=== PATIENT | female | born 1955 | race Caucasian/White ===

== ENCOUNTER 2018-11-05 16:55 | Inpatient (IN) | payer SELFPAY ==
[~2018-11-05] VITALS: Ht 172.7 cm; Wt 103.0 kg
[~2018-11-05 16:55] MED LIST: ATEN-41 PO; BUPR75TA20 PO; FLUO40CA8 PO; GABA-529 PO; PRO40 PO
[2018-11-05 17:05] VITALS: BP_SYST 144
[2018-11-05] MEDS ORDERED: NACL 0.9% 1,000 ML IV ONE (17:17)
[2018-11-05] MEDS ORDERED: ONDANSETRON HCL 4 MG/2 ML VIAL IVP ONE (17:30)
[2018-11-05] MEDS ORDERED: MORPHINE 4 MG/ML INJ. SYRINGE IM ONE (17:30)
[2018-11-05] MEDS ORDERED: IPRATROPIUM/ALBUTEROL SULFATE 3 ML AMPUL.NEB (DUONEB) INH ONE (17:30)
[2018-11-05 17:54] LABS: HEMATOCRIT 27.9 % (36-48); HEMOGLOBIN 8.4 g/dL (12.0-16.0); MEAN CORPUSCULAR VOLUME 74 fL (79.0-98.0); RED BLOOD CELL COUNT(AUTO) 3.75 MIL/uL (4.2-6.2); WHITE BLOOD COUNT (AUTO) 13.3 K/uL (4.8-10.8)
[2018-11-05 17:55] LABS: BASOPHILS % (AUTO) 0.2 % (0.0-2.0); EOSINOPHILS # (AUTO) 0.3 K/uL (0.0-0.4); EOSINOPHILS % (AUTO) 2.5 % (0.0-4.0); LYMPHOCYTES # (AUTO) 2.3 K/uL (1.0-5.5); LYMPHOCYTES % (AUTO) 17.6 % (20.5-51.5); MEAN CORPUSCULAR HEMOGLOBIN 22 pg (27-31); MEAN CORPUSCULAR HGB CONC 30 % (32-36); MONOCYTES # (AUTO) 1.4 K/uL (0.0-1.0); MONOCYTES % (AUTO) 10.7 % (1.7-9.3); NEUTROPHILS # (AUTO) 9.2 K/uL (1.8-7.7); PLATELET COUNT (AUTO) 483 K/uL (130-430); RED CELL DISTRIBUTION WIDTH 23.9 % (9.0-15.0)
[2018-11-05 18:00] LABS: CALCIUM 9.8 mg/dL (8.4-11.0); CREATININE 1.21 mg/dL (0.55-1.30); POTASSIUM 3.2 mmol/L (3.5-5.1)
[2018-11-05 18:02] LABS: INR 0.9 (0.8-1.2)
[2018-11-05 18:05] LABS: TOTAL BILIRUBIN 0.6 mg/dL (0.0-1.0)
[2018-11-05] MEDS ORDERED: LORazepam 2 MG/ML VIAL IVP PRN (19:00)
[2018-11-05] MEDS ORDERED: IOHEXOL 100 ML IV ONE (19:14)
[2018-11-05 19:45] VITALS: BP_SYST 145
[2018-11-05] MEDS ORDERED: POTASSIUM CHLORIDE 20 MEQ TAB.PRT.SR PO SCH (21:00)
[2018-11-05] MEDS: ONDANSETRON HCL 4 MG/2 ML VIAL IVP PRN (21:17)
[2018-11-05] MEDS ORDERED: MVI 10 ML VIAL IV ONE (21:19)
[2018-11-05] MEDS: MORPHINE 4 MG/ML INJ. SYRINGE IVP PRN (21:19)
[2018-11-05] MEDS ORDERED: THIAMINE HCL 100 MG/ML VIAL ONE (21:20)
[2018-11-05] MEDS ORDERED: MAGNESIUM SULFATE 1 GM/2 ML VIAL ONE (21:20)
[2018-11-05] MEDS ORDERED: FOLIC ACID 1 MG, THIAMINE HCL 100 MG, MAGNESIUM SULFATE 1 GM, MVI 10 ML in NACL 0.9% 1,... IV SCH (21:30)
[2018-11-05] MEDS ORDERED: FOLIC ACID 5 MG/ML VIAL IV ONE (21:32)
[2018-11-05] MEDS: TEMAZEPAM 15 MG CAPSULE PO PRN (22:42)
[2018-11-05] MEDS: FAMOTIDINE PF 20 MG/2 ML VIAL IVP SCH (22:42)
[2018-11-05] MEDS ORDERED: FAMOTIDINE PF 20 MG/2 ML VIAL ONE (22:51)
[2018-11-05] MEDS: HYDROcodone/ACETAMIN 10-325 MG TAB PO PRN (23:26)
[2018-11-06 00:25] VITALS: BP_SYST 149
[2018-11-06 02:54] LABS: BILIRUBIN,URINE NEGATIVE (NEGATIVE); BLOOD, URINE NEGATIVE (NEGATIVE); CLARITY/URINE CLEAR (CLEAR); COLOR,URINE YELLOW (YELLOW); GLUCOSE,URINE NEGATIVE (NEGATIVE); KETONES,URINE NEGATIVE (NEGATIVE); LEUKOCYTE ESTERASE ,URINE TRACE (NEGATIVE); NITRITE, URINE NEGATIVE (NEGATIVE); PROTEIN URINE TRACE (NEGATIVE); UROBILINOGEN,URINE 0.2 (0.2-1.0)
[2018-11-06 02:58] LABS: BACTERIA,URINE FEW /HPF (None Seen); RBC,URINE 0-3 /HPF (0-3)
[2018-11-06 06:17] LABS: INR 0.9 (0.8-1.2); PROTHROMBIN TIME 9.3 SECS (9.5-12.5)
[2018-11-06] MEDS: MORPHINE 4 MG/ML INJ. SYRINGE IVP PRN ×4 (06:59→21:46)
[2018-11-06] MEDS: ONDANSETRON HCL 4 MG/2 ML VIAL IVP PRN ×3 (07:03→21:44)
[2018-11-06 07:31] VITALS: BP_SYST 155
[2018-11-06 07:39] LABS: HEMOGLOBIN 7.7 g/dL (12.0-16.0); RED BLOOD CELL COUNT(AUTO) 3.48 MIL/uL (4.2-6.2); WHITE BLOOD COUNT (AUTO) 14.4 K/uL (4.8-10.8)
[2018-11-06 07:40] LABS: HEMATOCRIT 26.2 % (36-48)
[2018-11-06 07:41] LABS: BASOPHILS % (AUTO) 0.5 % (0.0-2.0); EOSINOPHILS % (AUTO) 1.9 % (0.0-4.0); LYMPHOCYTES # (AUTO) 2.5 K/uL (1.0-5.5); LYMPHOCYTES % (AUTO) 17.6 % (20.5-51.5); MEAN CORPUSCULAR HEMOGLOBIN 22 pg (27-31); MEAN CORPUSCULAR HGB CONC 29 % (32-36); MEAN CORPUSCULAR VOLUME 75 fL (79.0-98.0); MONOCYTES % (AUTO) 7.5 % (1.7-9.3); NEUTROPHILS # (AUTO) 10.5 K/uL (1.8-7.7); NEUTROPHILS % (AUTO) 72.5 % (40.0-70.0); PLATELET COUNT (AUTO) 423 K/uL (130-430); RED CELL DISTRIBUTION WIDTH 24.1 % (9.0-15.0)
[2018-11-06 07:43] LABS: BASOPHILS # (AUTO) 0.1 K/uL (0.0-0.2); EOSINOPHILS # (AUTO) 0.3 K/uL (0.0-0.4); MONOCYTES # (AUTO) 1.1 K/uL (0.0-1.0); RETICULOCYTE COUNT 2.5 % (0.5-1.5)
[2018-11-06 08:35] LABS: CALCIUM 8.9 mg/dL (8.4-11.0); CREATININE 0.97 mg/dL (0.55-1.30); POTASSIUM 3.2 mmol/L (3.5-5.1)
[2018-11-06 08:38] LABS: ALBUMIN 2.5 g/dL (3.4-4.8); FREE T4 (FREE THYROXINE) 0.6 ng/dl (0.8-1.5); THYROID STIMULATING HORMONE 4.78 uIu/mL (0.36-3.74); TOTAL BILIRUBIN 0.3 mg/dL (0.0-1.0)
[2018-11-06] MEDS: FLUoxetine HCL 20 MG CAPSULE (PROzac) PO SCH (09:00)
[2018-11-06] MEDS: GABAPENTIN 100 MG CAPSULE PO SCH ×3 (09:00→21:45)
[2018-11-06] MEDS: buPROPion HCL 75 MG TABLET PO SCH ×2 (09:00→15:02)
[2018-11-06] MEDS: PANTOPRAZOLE SODIUM 40 MG TAB PO SCH ×2 (09:00→21:45)
[2018-11-06] MEDS: ATENOLOL 50 MG TABLET (TENORMIN) PO SCH (09:00)
[2018-11-06 09:08] LABS: TOTAL IRON BIND. CAPACITY 351 ug/dL (250-450)
[2018-11-06] MEDS: FAMOTIDINE PF 20 MG/2 ML VIAL IVP SCH ×2 (09:08→21:46)
[2018-11-06] MEDS: HYDROcodone/ACETAMIN 10-325 MG TAB PO PRN ×3 (09:54→23:32)
[2018-11-06] MEDS ORDERED: POTASSIUM CHLORIDE 40 MEQ, LIDOCAINE JECT 2% PF 100 MG 50 MG in NS 250 ML IV ONE (10:15)
[2018-11-06] MEDS: D5LR 1,000 ML IV SCH ×3 (10:48→23:35)
[2018-11-06 11:17] VITALS: BP_SYST 147
[2018-11-06 13:13] VITALS: BP_SYST 147
[2018-11-06] MEDS ORDERED: IRON SUCROSE COMPLEX 200 MG in NS 100 ML IV ONE (14:15)
[2018-11-06] MEDS: cefTRIAXone 1 GM in D5W 50 ML IV SCH (16:01)
[2018-11-06 18:08] VITALS: BP_SYST 140
[2018-11-06 20:15] VITALS: BP_SYST 137
[2018-11-06] MEDS: FOLIC ACID 1 MG, THIAMINE HCL 100 MG, MAGNESIUM SULFATE 1 GM, MVI 10 ML in NACL 0.9% 1,... IV SCH (21:44)
[2018-11-07 00:45] LABS: BARBITURATE, URINE NEGATIVE (NEG <=200); METHAMPHETAMINES SCREEN,URINE NEGATIVE (NEG <=500); OPIATE, URINE POSITIVE (NEG <=100); URINE AMPHETAMINE NEGATIVE (NEG <=500); URINE METHADONE NEGATIVE (NEG <=200)
[2018-11-07 00:46] LABS: BENZODIAZEPINE, URINE POSITIVE (NEG <=150); CANNABINOID, URINE NEGATIVE (NEG <=50); COCAINE, URINE NEGATIVE (NEG <=150); PHENCYCLIDINE SCREEN,URINE NEGATIVE (NEG <=25); UR TRICYCLIC ANTIDEPRESSANTS NEGATIVE (NEG <=300); URINE OXYCODONE SCREEN NEGATIVE (NEG <=100); URINE PROPOXYPHENE SCREEN NEGATIVE (NEG <=300)
[2018-11-07 00:54] VITALS: BP_SYST 156
[2018-11-07] MEDS: MORPHINE 4 MG/ML INJ. SYRINGE IVP PRN ×4 (04:57→21:10)
[2018-11-07] MEDS: ONDANSETRON HCL 4 MG/2 ML VIAL IVP PRN ×3 (04:57→21:09)
[2018-11-07] MEDS: D5LR 1,000 ML IV SCH ×2 (04:58→15:14)
[2018-11-07 06:16] LABS: INR 0.9 (0.8-1.2); PROTHROMBIN TIME 9.3 SECS (9.5-12.5)
[2018-11-07 06:31] LABS: CREATININE 0.91 mg/dL (0.55-1.30)
[2018-11-07 06:41] LABS: ALBUMIN 2.4 g/dL (3.4-4.8)
[2018-11-07 06:54] LABS: TOTAL BILIRUBIN 0.1 mg/dL (0.0-1.0)
[2018-11-07] MEDS ORDERED: MIDAZOLAM HCL 5 MG/5 ML VIAL ONE (07:16)
[2018-11-07 07:34] LABS: HEMATOCRIT 24.3 % (36-48); HEMOGLOBIN 7.3 g/dL (12.0-16.0); LYMPHOCYTES % (AUTO) 24.4 % (20.5-51.5); MEAN CORPUSCULAR HEMOGLOBIN 23 pg (27-31); MEAN CORPUSCULAR HGB CONC 30 % (32-36); MEAN CORPUSCULAR VOLUME 76 fL (79.0-98.0); MONOCYTES % (AUTO) 8.7 % (1.7-9.3); NEUTROPHILS % (AUTO) 58.5 % (40.0-70.0); PLATELET COUNT (AUTO) 400 K/uL (130-430); RED BLOOD CELL COUNT(AUTO) 3.22 MIL/uL (4.2-6.2); RED CELL DISTRIBUTION WIDTH 23.4 % (9.0-15.0); WHITE BLOOD COUNT (AUTO) 9.5 K/uL (4.8-10.8)
[2018-11-07 07:35] LABS: BASOPHILS # (AUTO) 0.1 K/uL (0.0-0.2); BASOPHILS % (AUTO) 0.6 % (0.0-2.0); EOSINOPHILS # (AUTO) 0.7 K/uL (0.0-0.4); EOSINOPHILS % (AUTO) 7.8 % (0.0-4.0); LYMPHOCYTES # (AUTO) 2.3 K/uL (1.0-5.5); MONOCYTES # (AUTO) 0.8 K/uL (0.0-1.0); NEUTROPHILS # (AUTO) 5.6 K/uL (1.8-7.7)
[2018-11-07] MEDS: GABAPENTIN 100 MG CAPSULE PO SCH ×3 (09:00→21:10)
[2018-11-07] MEDS: MEPERIDINE HCL/PF 100 MG/ML AMP ONE ×3 (09:42→09:50)
[2018-11-07] MEDS: MIDAZOLAM HCL 5 MG/5 ML VIAL ONE ×5 (09:42→09:50)
[2018-11-07] MEDS: FAMOTIDINE PF 20 MG/2 ML VIAL IVP SCH ×2 (11:49→21:09)
[2018-11-07 12:59] VITALS: BP_SYST 140
[2018-11-07] MEDS: HYDROcodone/ACETAMIN 10-325 MG TAB PO PRN (13:42)
[2018-11-07] MEDS: cefTRIAXone 1 GM in D5W 50 ML IV SCH (15:18)
[2018-11-07] MEDS: FLUoxetine HCL 20 MG CAPSULE (PROzac) PO SCH (15:21)
[2018-11-07] MEDS: buPROPion HCL 75 MG TABLET PO SCH (15:22)
[2018-11-07] MEDS: ATENOLOL 50 MG TABLET (TENORMIN) PO SCH (15:23)
[2018-11-07 16:41] VITALS: BP_SYST 159
[2018-11-07] MEDS: PANTOPRAZOLE SODIUM 40 MG/VIAL (PROTONIX) IVP SCH ×2 (17:00→17:16)
[2018-11-07] MEDS ORDERED: IRON SUCROSE COMPLEX 200 MG in NS 100 ML IV SCH (18:00)
[2018-11-07 20:33] VITALS: BP_SYST 148
[2018-11-07] MEDS: SUCRALFATE 1 GM TABLET PO SCH (21:08)
[2018-11-07] MEDS: FOLIC ACID 1 MG, THIAMINE HCL 100 MG, MAGNESIUM SULFATE 1 GM, MVI 10 ML in NACL 0.9% 1,... IV SCH (21:08)
[2018-11-07] MEDS: MULTIVITS,CA,MINERALS/IRON/FA 1 TABLET PO SCH (21:08)
[2018-11-08] MEDS: D5LR 1,000 ML IV SCH (00:21)
[2018-11-08] MEDS: TEMAZEPAM 15 MG CAPSULE PO PRN (00:21)
[2018-11-08 03:19] VITALS: BP_SYST 131
[2018-11-08] MEDS: SUCRALFATE 1 GM TABLET PO SCH ×5 (06:20→22:24)
[2018-11-08] MEDS: PANTOPRAZOLE SODIUM 40 MG/VIAL (PROTONIX) IVP SCH ×2 (06:20→16:18)
[2018-11-08 07:20] VITALS: BP_SYST 137
[2018-11-08 07:35] LABS: CALCIUM 9.4 mg/dL (8.4-11.0); CREATININE 0.79 mg/dL (0.55-1.30); POTASSIUM 4.1 mmol/L (3.5-5.1)
[2018-11-08] MEDS: ONDANSETRON HCL 4 MG/2 ML VIAL IVP PRN (07:51)
[2018-11-08] MEDS: MORPHINE 4 MG/ML INJ. SYRINGE IVP PRN ×4 (07:51→22:33)
[2018-11-08] MEDS: MULTIVITS,CA,MINERALS/IRON/FA 1 TABLET PO SCH ×2 (08:49→22:25)
[2018-11-08] MEDS: FLUoxetine HCL 20 MG CAPSULE (PROzac) PO SCH (08:49)
[2018-11-08] MEDS: GABAPENTIN 100 MG CAPSULE PO SCH ×3 (08:50→22:25)
[2018-11-08] MEDS: FAMOTIDINE PF 20 MG/2 ML VIAL IVP SCH (08:51)
[2018-11-08] MEDS: ATENOLOL 50 MG TABLET (TENORMIN) PO SCH (08:51)
[2018-11-08] MEDS: buPROPion HCL 75 MG TABLET PO SCH (08:59)
[2018-11-08 09:36] LABS: LYMPHOCYTES % (AUTO) 25.6 % (20.5-51.5); MEAN CORPUSCULAR HEMOGLOBIN 23 pg (27-31); MEAN CORPUSCULAR HGB CONC 30 % (32-36); MEAN CORPUSCULAR VOLUME 76 fL (79.0-98.0); NEUTROPHILS % (AUTO) 56.8 % (40.0-70.0); PLATELET COUNT (AUTO) 416 K/uL (130-430); WHITE BLOOD COUNT (AUTO) 10.7 K/uL (4.8-10.8)
[2018-11-08 09:37] LABS: BASOPHILS % (AUTO) 0.5 % (0.0-2.0); EOSINOPHILS # (AUTO) 0.9 K/uL (0.0-0.4); EOSINOPHILS % (AUTO) 8.3 % (0.0-4.0); LYMPHOCYTES # (AUTO) 2.7 K/uL (1.0-5.5); MONOCYTES # (AUTO) 0.9 K/uL (0.0-1.0); MONOCYTES % (AUTO) 8.8 % (1.7-9.3); NEUTROPHILS # (AUTO) 6.1 K/uL (1.8-7.7)
[2018-11-08 09:38] LABS: HEMATOCRIT 22.8 % (36-48); HEMOGLOBIN 6.9 g/dL (12.0-16.0)
[2018-11-08 09:39] LABS: RED CELL DISTRIBUTION WIDTH 23.4 % (9.0-15.0)
[2018-11-08] MEDS: HYDROcodone/ACETAMIN 10-325 MG TAB PO PRN ×2 (10:41→18:19)
[2018-11-08] MEDS: cefTRIAXone 1 GM in D5W 50 ML IV SCH (16:15)
[2018-11-08 16:36] VITALS: BP_SYST 149
[2018-11-08 16:38] VITALS: BP_SYST 132
[2018-11-08 19:10] VITALS: BP_SYST 131
[2018-11-08] MEDS: FOLIC ACID 1 MG, THIAMINE HCL 100 MG, MAGNESIUM SULFATE 1 GM, MVI 10 ML in NACL 0.9% 1,... IV SCH (22:25)
[2018-11-09 02:39] VITALS: BP_SYST 155
[2018-11-09] MEDS: HYDROcodone/ACETAMIN 10-325 MG TAB PO PRN ×3 (03:26→20:02)
[2018-11-09] MEDS: MORPHINE 4 MG/ML INJ. SYRINGE IVP PRN ×3 (06:17→15:01)
[2018-11-09] MEDS: PANTOPRAZOLE SODIUM 40 MG/VIAL (PROTONIX) IVP SCH ×2 (06:17→16:39)
[2018-11-09 07:39] VITALS: BP_SYST 139
[2018-11-09 07:40] LABS: CALCIUM 9.5 mg/dL (8.4-11.0); CREATININE 0.95 mg/dL (0.55-1.30); POTASSIUM 4.5 mmol/L (3.5-5.1)
[2018-11-09] MEDS: ATENOLOL 50 MG TABLET (TENORMIN) PO SCH (08:21)
[2018-11-09] MEDS: FLUoxetine HCL 20 MG CAPSULE (PROzac) PO SCH (08:21)
[2018-11-09] MEDS: buPROPion HCL 75 MG TABLET PO SCH (08:21)
[2018-11-09] MEDS: SUCRALFATE 1 GM TABLET PO SCH ×4 (08:21→21:55)
[2018-11-09] MEDS: GABAPENTIN 100 MG CAPSULE PO SCH ×3 (08:22→21:55)
[2018-11-09] MEDS: MULTIVITS,CA,MINERALS/IRON/FA 1 TABLET PO SCH ×2 (08:24→21:55)
[2018-11-09 08:32] LABS: EOSINOPHILS % (AUTO) 4.2 % (0.0-4.0); HEMATOCRIT 27.2 % (36-48); HEMOGLOBIN 8.3 g/dL (12.0-16.0); MEAN CORPUSCULAR HEMOGLOBIN 24 pg (27-31); MEAN CORPUSCULAR HGB CONC 31 % (32-36); MEAN CORPUSCULAR VOLUME 78 fL (79.0-98.0); MONOCYTES % (AUTO) 9.5 % (1.7-9.3); PLATELET COUNT (AUTO) 444 K/uL (130-430); RED BLOOD CELL COUNT(AUTO) 3.49 MIL/uL (4.2-6.2); RED CELL DISTRIBUTION WIDTH 23.5 % (9.0-15.0); WHITE BLOOD COUNT (AUTO) 15.9 K/uL (4.8-10.8)
[2018-11-09 08:33] LABS: BASOPHILS % (AUTO) 0.3 % (0.0-2.0); EOSINOPHILS # (AUTO) 0.7 K/uL (0.0-0.4); LYMPHOCYTES # (AUTO) 1.9 K/uL (1.0-5.5); MONOCYTES # (AUTO) 1.5 K/uL (0.0-1.0); NEUTROPHILS # (AUTO) 11.8 K/uL (1.8-7.7)
[2018-11-09 12:21] VITALS: BP_SYST 135
[2018-11-09] MEDS: cefTRIAXone 1 GM in D5W 50 ML IV SCH (13:57)
[2018-11-09 15:35] VITALS: BP_SYST 117
[2018-11-09] MEDS ORDERED: PIPERACILLIN/TAZO 4.5GM/DEX-IS 100 ML IV ONE (16:00)
[2018-11-09 16:44] VITALS: BP_SYST 117
[2018-11-09] MEDS: IPRATROPIUM/ALBUTEROL SULFATE 3 ML AMPUL.NEB (DUONEB) INH SCH ×2 (19:30→22:45)
[2018-11-09 19:59] VITALS: BP_SYST 132
[2018-11-09] MEDS: PIPERACILLIN/TAZO 4.5GM/DEX-IS 100 ML IV SCH (21:56)
[2018-11-09] MEDS: FOLIC ACID 1 MG, THIAMINE HCL 100 MG, MAGNESIUM SULFATE 1 GM, MVI 10 ML in NACL 0.9% 1,... IV SCH (21:57)
[2018-11-10 01:18] VITALS: BP_SYST 128
[2018-11-10] MEDS: IPRATROPIUM/ALBUTEROL SULFATE 3 ML AMPUL.NEB (DUONEB) INH SCH ×6 (02:45→23:35)
[2018-11-10] MEDS: HYDROcodone/ACETAMIN 10-325 MG TAB PO PRN ×3 (03:13→18:11)
[2018-11-10] MEDS: PANTOPRAZOLE SODIUM 40 MG/VIAL (PROTONIX) IVP SCH ×2 (05:55→16:07)
[2018-11-10] MEDS: PIPERACILLIN/TAZO 4.5GM/DEX-IS 100 ML IV SCH ×3 (05:55→21:39)
[2018-11-10 07:24] LABS: CALCIUM 9.3 mg/dL (8.4-11.0); CREATININE 0.87 mg/dL (0.55-1.30); POTASSIUM 3.9 mmol/L (3.5-5.1)
[2018-11-10 07:48] VITALS: BP_SYST 142
[2018-11-10 08:30] LABS: WHITE BLOOD COUNT (AUTO) 13.1 K/uL (4.8-10.8)
[2018-11-10 08:31] LABS: BASOPHILS % (AUTO) 0.2 % (0.0-2.0); EOSINOPHILS # (AUTO) 0.3 K/uL (0.0-0.4); EOSINOPHILS % (AUTO) 2.4 % (0.0-4.0); HEMOGLOBIN 7.6 g/dL (12.0-16.0); LYMPHOCYTES # (AUTO) 1.9 K/uL (1.0-5.5); LYMPHOCYTES % (AUTO) 14.1 % (20.5-51.5); MEAN CORPUSCULAR HEMOGLOBIN 24 pg (27-31); MEAN CORPUSCULAR HGB CONC 31 % (32-36); MEAN CORPUSCULAR VOLUME 77 fL (79.0-98.0); MONOCYTES # (AUTO) 1.6 K/uL (0.0-1.0); MONOCYTES % (AUTO) 12.1 % (1.7-9.3); NEUTROPHILS # (AUTO) 9.4 K/uL (1.8-7.7); NEUTROPHILS % (AUTO) 71.2 % (40.0-70.0); PLATELET COUNT (AUTO) 406 K/uL (130-430); RED BLOOD CELL COUNT(AUTO) 3.23 MIL/uL (4.2-6.2); RED CELL DISTRIBUTION WIDTH 23.5 % (9.0-15.0)
[2018-11-10] MEDS: SUCRALFATE 1 GM TABLET PO SCH ×4 (09:06→21:40)
[2018-11-10] MEDS: GABAPENTIN 100 MG CAPSULE PO SCH ×3 (09:07→21:40)
[2018-11-10] MEDS: MULTIVITS,CA,MINERALS/IRON/FA 1 TABLET PO SCH ×2 (09:08→21:40)
[2018-11-10] MEDS: FLUoxetine HCL 20 MG CAPSULE (PROzac) PO SCH (09:08)
[2018-11-10] MEDS: buPROPion HCL 75 MG TABLET PO SCH (09:08)
[2018-11-10] MEDS: ATENOLOL 50 MG TABLET (TENORMIN) PO SCH (09:09)
[2018-11-10] MEDS: POTASSIUM CHLORIDE 20 MEQ/PKT PACKET PO SCH ×2 (10:44→21:00)
[2018-11-10] MEDS: FUROSEMIDE 20 MG/2 ML VIAL IVP SCH ×2 (10:45→21:43)
[2018-11-10 12:10] VITALS: BP_SYST 139
[2018-11-10] MEDS ORDERED: IOHEXOL 350 mgI/mL, 150 ML INFUS..BTL IV ONE (15:27)
[2018-11-10 16:36] VITALS: BP_SYST 157
[2018-11-10] MEDS: SOD FERRIC GLUC COMPLEX/SUC 125 MG in NS 100 ML IV SCH (17:48)
[2018-11-10 19:45] VITALS: BP_SYST 159
[2018-11-10] MEDS: FOLIC ACID 1 MG, THIAMINE HCL 100 MG, MAGNESIUM SULFATE 1 GM, MVI 10 ML in NACL 0.9% 1,... IV SCH (21:39)
[2018-11-10] MEDS: TEMAZEPAM 15 MG CAPSULE PO PRN (21:54)
[2018-11-11 00:14] VITALS: BP_SYST 111
[2018-11-11] MEDS: IPRATROPIUM/ALBUTEROL SULFATE 3 ML AMPUL.NEB (DUONEB) INH SCH ×6 (04:00→23:23)
[2018-11-11] MEDS: PANTOPRAZOLE SODIUM 40 MG/VIAL (PROTONIX) IVP SCH ×2 (06:50→16:44)
[2018-11-11] MEDS: PIPERACILLIN/TAZO 4.5GM/DEX-IS 100 ML IV SCH ×3 (06:50→21:14)
[2018-11-11 08:02] VITALS: BP_SYST 155
[2018-11-11 08:18] LABS: CALCIUM 9.2 mg/dL (8.4-11.0); CREATININE 0.94 mg/dL (0.55-1.30); POTASSIUM 3.4 mmol/L (3.5-5.1)
[2018-11-11] MEDS: buPROPion HCL 75 MG TABLET PO SCH (09:10)
[2018-11-11] MEDS: GABAPENTIN 100 MG CAPSULE PO SCH ×3 (09:11→20:46)
[2018-11-11] MEDS: MULTIVITS,CA,MINERALS/IRON/FA 1 TABLET PO SCH ×2 (09:11→20:46)
[2018-11-11] MEDS: SUCRALFATE 1 GM TABLET PO SCH ×4 (09:12→20:46)
[2018-11-11 09:14] LABS: BASOPHILS % (AUTO) 0.4 % (0.0-2.0); EOSINOPHILS # (AUTO) 0.5 K/uL (0.0-0.4); EOSINOPHILS % (AUTO) 4.8 % (0.0-4.0); HEMATOCRIT 28.3 % (36-48); HEMOGLOBIN 8.6 g/dL (12.0-16.0); LYMPHOCYTES # (AUTO) 1.9 K/uL (1.0-5.5); LYMPHOCYTES % (AUTO) 16.3 % (20.5-51.5); MEAN CORPUSCULAR HEMOGLOBIN 24 pg (27-31); MEAN CORPUSCULAR HGB CONC 30 % (32-36); MEAN CORPUSCULAR VOLUME 78 fL (79.0-98.0); MONOCYTES # (AUTO) 1.2 K/uL (0.0-1.0); NEUTROPHILS # (AUTO) 7.6 K/uL (1.8-7.7); NEUTROPHILS % (AUTO) 67.5 % (40.0-70.0); PLATELET COUNT (AUTO) 444 K/uL (130-430); RED BLOOD CELL COUNT(AUTO) 3.65 MIL/uL (4.2-6.2); WHITE BLOOD COUNT (AUTO) 11.3 K/uL (4.8-10.8)
[2018-11-11 09:15] LABS: RED CELL DISTRIBUTION WIDTH 24.2 % (9.0-15.0)
[2018-11-11] MEDS: ATENOLOL 50 MG TABLET (TENORMIN) PO SCH (09:15)
[2018-11-11] MEDS: FLUoxetine HCL 20 MG CAPSULE (PROzac) PO SCH (09:41)
[2018-11-11] MEDS: HYDROcodone/ACETAMIN 10-325 MG TAB PO PRN (09:42)
[2018-11-11 11:26] VITALS: BP_SYST 137
[2018-11-11] MEDS ORDERED: FUROSEMIDE 20 MG/2 ML VIAL IVP ONE (14:30)
[2018-11-11 15:08] VITALS: BP_SYST 132
[2018-11-11] MEDS ORDERED: POTASSIUM CHLORIDE 20 MEQ TAB.PRT.SR PO ONE (16:15)
[2018-11-11] MEDS: POTASSIUM CHLORIDE 20 MEQ/PKT PACKET PO SCH (16:45)
[2018-11-11] MEDS: SOD FERRIC GLUC COMPLEX/SUC 125 MG in NS 100 ML IV SCH (16:45)
[2018-11-11 19:45] VITALS: BP_SYST 152
[2018-11-11] MEDS: FOLIC ACID 1 MG, THIAMINE HCL 100 MG, MAGNESIUM SULFATE 1 GM, MVI 10 ML in NACL 0.9% 1,... IV SCH (20:45)
[2018-11-11] MEDS: TEMAZEPAM 15 MG CAPSULE PO PRN (20:46)
[2018-11-12] VITALS: BP_SYST 147
[2018-11-12] MEDS: IPRATROPIUM/ALBUTEROL SULFATE 3 ML AMPUL.NEB (DUONEB) INH SCH ×4 (03:00→15:13)
[2018-11-12] MEDS: POTASSIUM CHLORIDE 20 MEQ/PKT PACKET PO SCH (05:59)
[2018-11-12] MEDS: PIPERACILLIN/TAZO 4.5GM/DEX-IS 100 ML IV SCH (05:59)
[2018-11-12] MEDS: PANTOPRAZOLE SODIUM 40 MG/VIAL (PROTONIX) IVP SCH (05:59)
[2018-11-12] MEDS: HYDROcodone/ACETAMIN 10-325 MG TAB PO PRN (06:34)
[2018-11-12] MEDS: ONDANSETRON HCL 4 MG/2 ML VIAL IVP PRN (06:37)
[2018-11-12 07:58] LABS: CREATININE 0.99 mg/dL (0.55-1.30); POTASSIUM 3.8 mmol/L (3.5-5.1)
[2018-11-12] MEDS: SUCRALFATE 1 GM TABLET PO SCH ×2 (08:31→14:30)
[2018-11-12] MEDS: FLUoxetine HCL 20 MG CAPSULE (PROzac) PO SCH (08:31)
[2018-11-12] MEDS: GABAPENTIN 100 MG CAPSULE PO SCH ×2 (08:31→14:30)
[2018-11-12] MEDS: buPROPion HCL 75 MG TABLET PO SCH (08:31)
[2018-11-12] MEDS: MULTIVITS,CA,MINERALS/IRON/FA 1 TABLET PO SCH (08:32)
[2018-11-12] MEDS: ATENOLOL 50 MG TABLET (TENORMIN) PO SCH (08:32)
[2018-11-12 08:41] LABS: CALCIUM 9.7 mg/dL (8.4-11.0)
[2018-11-12 09:01] LABS: HEMATOCRIT 32.1 % (36-48); HEMOGLOBIN 9.8 g/dL (12.0-16.0); MEAN CORPUSCULAR HEMOGLOBIN 24 pg (27-31); MEAN CORPUSCULAR HGB CONC 31 % (32-36); MEAN CORPUSCULAR VOLUME 78 fL (79.0-98.0); PLATELET COUNT (AUTO) 65 K/uL (130-430); RED BLOOD CELL COUNT(AUTO) 4.14 MIL/uL (4.2-6.2); RED CELL DISTRIBUTION WIDTH 24.5 % (9.0-15.0); WHITE BLOOD COUNT (AUTO) 11.8 K/uL (4.8-10.8)
[2018-11-12 09:02] LABS: BASOPHILS # (AUTO) 0.1 K/uL (0.0-0.2); BASOPHILS % (AUTO) 0.6 % (0.0-2.0); EOSINOPHILS # (AUTO) 0.6 K/uL (0.0-0.4); EOSINOPHILS % (AUTO) 5.4 % (0.0-4.0); LYMPHOCYTES # (AUTO) 2.5 K/uL (1.0-5.5); LYMPHOCYTES % (AUTO) 21.5 % (20.5-51.5); MONOCYTES # (AUTO) 1.1 K/uL (0.0-1.0); MONOCYTES % (AUTO) 9.5 % (1.7-9.3); NEUTROPHILS # (AUTO) 7.5 K/uL (1.8-7.7)
[2018-11-12 09:49] VITALS: BP_SYST 137
[2018-11-12 12:14] LABS: HEMOGLOBIN 9.2 g/dL (12.0-16.0); LYMPHOCYTES % (AUTO) 16.5 % (20.5-51.5); MEAN CORPUSCULAR HEMOGLOBIN 23 pg (27-31); MEAN CORPUSCULAR HGB CONC 30 % (32-36); MEAN CORPUSCULAR VOLUME 78 fL (79.0-98.0); NEUTROPHILS % (AUTO) 67.2 % (40.0-70.0); PLATELET COUNT (AUTO) 515 K/uL (130-430); RED BLOOD CELL COUNT(AUTO) 3.97 MIL/uL (4.2-6.2); RED CELL DISTRIBUTION WIDTH 24.5 % (9.0-15.0); WHITE BLOOD COUNT (AUTO) 11.2 K/uL (4.8-10.8)
[2018-11-12 12:15] LABS: BASOPHILS # (AUTO) 0.1 K/uL (0.0-0.2); BASOPHILS % (AUTO) 0.5 % (0.0-2.0); EOSINOPHILS # (AUTO) 0.6 K/uL (0.0-0.4); EOSINOPHILS % (AUTO) 5.2 % (0.0-4.0); LYMPHOCYTES # (AUTO) 1.8 K/uL (1.0-5.5); MONOCYTES # (AUTO) 1.2 K/uL (0.0-1.0); MONOCYTES % (AUTO) 10.6 % (1.7-9.3); NEUTROPHILS # (AUTO) 7.5 K/uL (1.8-7.7)
[2018-11-12 12:57] VITALS: BP_SYST 134
[2018-11-12] MEDS: SOD FERRIC GLUC COMPLEX/SUC 125 MG in NS 100 ML IV SCH (14:30)
[2018-11-12 14:44] VITALS: BP_SYST 134
[2018-11-12] MEDS ORDERED: TEMA30CA5 PO (14:50)
[2018-11-12] MEDS ORDERED: HYDR-4274 PO (14:50)
[2018-11-12] MEDS ORDERED: WELSR150 PO (14:51)
[2018-11-12] MEDS ORDERED: ATEN-167 PO (14:51)
[2018-11-12] MEDS ORDERED: PEDI1TAB28 PO (14:52)
[2018-11-12] MEDS ORDERED: GABA-531 PO (14:52)
[2018-11-12] MEDS ORDERED: SUCR1TAB78 PO (14:53)
== END 2018-11-12 16:05 | disposition home or self-care (01) | DRG 377 ==
LOC: SED 16:55 → STU 18:56 → MERGE 18:56 → STU 19:41 → SMU 11-06 23:01 → STU 11-09 16:25 → SMU 11-11 17:47
PROVIDERS: ADMIT Internal Medicine; ATTEND Internal Medicine
PROC: 0DB68ZX Excision of Stomach, Via Natural or Artificial Opening Endoscopic, Diagnostic (ICD-10-PCS; principal; 2018-11-07 09:00)
PROC: 30233N1 Transfusion of Nonautologous Red Blood Cells into Peripheral Vein, Percutaneous Approach (ICD-10-PCS; 2018-11-08)
DX: K26.4 Chronic or unspecified duodenal ulcer with hemorrhage (principal); K85.90 Acute pancreatitis without necrosis or infection, unspecified; J18.9 Pneumonia, unspecified organism; J81.1 Chronic pulmonary edema; N39.0 Urinary tract infection, site not specified; E44.1 Mild protein-calorie malnutrition; K29.71 Gastritis, unspecified, with bleeding; K25.4 Chronic or unspecified gastric ulcer with hemorrhage; D50.0 Iron deficiency anemia secondary to blood loss (chronic); E66.9 Obesity, unspecified; I10 Essential (primary) hypertension; K21.9 Gastro-esophageal reflux disease without esophagitis; G62.9 Polyneuropathy, unspecified; E87.6 Hypokalemia; E03.9 Hypothyroidism, unspecified; K57.90 Diverticulosis of intestine, part unspecified, without perforation or abscess without bleeding; K64.9 Unspecified hemorrhoids; I51.89 Other ill-defined heart diseases; F32.9 Major depressive disorder, single episode, unspecified; K20.9 Esophagitis, unspecified; K80.20 Calculus of gallbladder without cholecystitis without obstruction; Z79.899 Other long term (current) drug therapy; Z80.7 Family history of other malignant neoplasms of lymphoid, hematopoietic and related tissues; Z80.8 Family history of malignant neoplasm of other organs or systems; Z82.5 Family history of asthma and other chronic lower respiratory diseases; Z90.710 Acquired absence of both cervix and uterus; Z88.8 Allergy status to other drugs, medicaments and biological substances; Z68.34 Body mass index [BMI] 34.0-34.9, adult
CPT/HCPCS: 36415; 36600; 43239; 71045; 71046-TC; 71275; 74181; 76700-TC; 78226; 80048; 80053; 80061; 80307; 81000-TC; 82140-TC; 82150-TC; 82803-TC; 83540-TC; 83550-TC; 83690-TC; 83874; 83880; 84439; 84443-TC; 84484; 85025; 85044-TC; 85379; 85610-TC; 86886; 86900; 86901; 86920; 87081; 87086; 87186-TC; 88305; 88312; 88313; 93005; 93306; 94640; 94664; 94760; 96361; 96372; 96374; 99285; A9537; C9113; G0378; J0696; J1756; J1940; J2060; J2175; J2250; J2270; J2405; J2543; J2916; J3411; J3475; J3480; J3490; J7030; J7050; J7060; J7120; J7620; P9021; Q9967

== ENCOUNTER 2018-12-09 12:00 | Emergency (ER) | payer OTHER ==
[~2018-12-09] VITALS: Ht 172.7 cm; Wt 95.3 kg
[~2018-12-09 12:00] MED LIST changes: +ATEN-167 PO; +GABA-531 PO; +HYDR-4274 PO; +PEDI1TAB28 PO; +SUCR1TAB78 PO; +TEMA30CA5 PO; +WELSR150 PO
[2018-12-09 12:05] VITALS: BP_SYST 111
--- NOTE | 2018-12-09 12:05 | NUR ---
Patient triaged and placed in waiting room. VSS and patient appears in no acute distress at this time. Accompanied by SELF, awaiting available bed, and MD notified of need for MSE.
--- NOTE | 2018-12-09 13:30 | NUR ---
Note tim in ED - 12/09/18 at 1435 by GONSALO CALLED TO COME BACK TO ER BED, UNABLE TO LOCATE PT AT THIS TIME.
--- NOTE | 2018-12-09 13:32 | NUR ---
SEEN AND EVALUATED BY DR OLIVER IN TRIAGE ROOM
--- NOTE | 2018-12-09 14:10 | NUR ---
Oz dumont in [facility] - 12/09/18 at 1435 by GONSALO CALLED TO GO TO LAB FOR BLOOD DRAW, UNABLE TO LOCATE PT.
--- NOTE | 2018-12-09 14:15 | NUR ---
Oz dumont in ED - 12/09/18 at 1435 by GONSALO UNABLE TO LOCATE PT AT THIS TIME. PT LWBS
[2018-12-09 14:37] LABS: BASOPHILS # (AUTO) 0.1 K/uL (0.0-0.2); BASOPHILS % (AUTO) 0.6 % (0.0-2.0); EOSINOPHILS # (AUTO) 0.1 K/uL (0.0-0.4); EOSINOPHILS % (AUTO) 0.7 % (0.0-4.0); LYMPHOCYTES # (AUTO) 3.1 K/uL (1.0-5.5); LYMPHOCYTES % (AUTO) 22.7 % (20.5-51.5); MEAN CORPUSCULAR HEMOGLOBIN 26 pg (27-31); MEAN CORPUSCULAR HGB CONC 32 % (32-36); MEAN CORPUSCULAR VOLUME 82 fL (79.0-98.0); MONOCYTES % (AUTO) 7.5 % (1.7-9.3); NEUTROPHILS # (AUTO) 9.4 K/uL (1.8-7.7); NEUTROPHILS % (AUTO) 68.5 % (40.0-70.0); PLATELET COUNT (AUTO) 412 K/uL (130-430); RED BLOOD CELL COUNT(AUTO) 5.37 MIL/uL (4.2-6.2); RED CELL DISTRIBUTION WIDTH 25.3 % (9.0-15.0); WHITE BLOOD COUNT (AUTO) 13.7 K/uL (4.8-10.8)
[2018-12-09 14:56] LABS: CALCIUM 10.9 mg/dL (8.4-11.0); CREATININE 1.61 mg/dL (0.55-1.30); POTASSIUM 3.4 mmol/L (3.5-5.1)
[2018-12-09 15:06] LABS: PROTHROMBIN TIME 10.3 SECS (9.5-12.5)
[2018-12-09 15:10] LABS: TOTAL BILIRUBIN 0.7 mg/dL (0.0-1.0)
--- NOTE | 2018-12-09 15:45 | NUR ---
PATIENT CAME IN COMPLAINING OF PAIN 10/10 IN ABD FOR 2 WEEKS. PATIENT ALSO COMPLAINING OF NASUEA, VOMITING, DIAHRREA, AND WEAKNESS. PATIENT SAID SHE WAS IN THE MONTH 1 MONTH AGO FOR PANCRATITIS. PATIENT SAID SHE ONLY ATE PEACHES TODAY. PATIENT ALERT AND ORIENTED X4 NOT COMPLANING OF SOB.
--- NOTE | 2018-12-09 15:50 | NUR ---
ER Dr. caldera at bedside examining patient.
[2018-12-09] MEDS ORDERED: MORPHINE 4 MG/ML INJ. SYRINGE IVP ONE (16:00)
[2018-12-09] MEDS ORDERED: NACL 0.9% 1,000 ML IV ONE (16:00)
[2018-12-09] MEDS ORDERED: ONDANSETRON HCL 4 MG/2 ML VIAL IVP ONE (16:00)
[2018-12-09 18:22] VITALS: BP_SYST 141
--- NOTE | 2018-12-09 18:22 | NUR ---
Patient given written and verbal discharge instructions and verbalizes understanding. ER MD discussed with patient the results and treatment provided. Patient in stable condition. ID arm band removed. IV catheter removed intact and dressing applied, no active bleeding. Rx of cipro, colace, tramadol, and zofran given. Patient educated on pain management and to follow up with PMD. Pain Scale 0/10. Opportunity for questions provided and answered. Medication side effect fact sheet provided.
== END 2018-12-09 18:22 | disposition home or self-care (01) ==
LOC: SED 12:00
DX: K80.20 Calculus of gallbladder without cholecystitis without obstruction (principal); R19.7 Diarrhea, unspecified; Z79.899 Other long term (current) drug therapy; Z91.048 Other nonmedicinal substance allergy status
CPT/HCPCS: 36415; 71046; 74176; 76700; 80053; 83690; 84484; 85025; 85610; 85730; 93005; 96361; 96374; 96375; 99284; J2270; J2405; J7030

== ENCOUNTER 2018-12-12 19:39 | Inpatient (IN) | payer SELFPAY ==
[~2018-12-12] VITALS: Ht 172.7 cm; Wt 94.8 kg
[~2018-12-12 19:39] MED LIST changes: +BUPIVACAINE /EPINEPHRINE/PF 0.25% 30 ML VIAL INJ ONE; +GLYCOPYRROLATE 0.2 MG/ML VIAL IJ ONE; +LR 1,000 ML IV.SOLN IV ONE; +MORPHINE SULFATE 10MG/10ML PF AMP EP ONE; +NEOSTIGMINE METHYLSULFATE 1 MG/ML, 10 ML VIAL IVP ONE; +NS 1000 ML IV.SOLN IV ONE; +NS IRRIG SOLN 1000 ML IR ONE; +ONDANSETRON HCL 4 MG/2 ML VIAL IVP ONE; +PROPOFOL 200MG/ 20ML VIAL (DIPRIVAN) IV ONE; +ROCURONIUM BROMIDE 10 MG/ML (ZEMURON) IV ONE; +SEVOFLURANE 15 MIN GAS INH ONE; +fentaNYL CITRATE/PF 100 MCG/2 ML AMP IVP ONE
[2018-12-12 19:48] VITALS: BP_SYST 107
[2018-12-12 21:21] LABS: MEAN CORPUSCULAR HEMOGLOBIN 26 pg (27-31); MEAN CORPUSCULAR HGB CONC 32 % (32-36); MEAN CORPUSCULAR VOLUME 83 fL (79.0-98.0); PLATELET COUNT (AUTO) 357 K/uL (130-430); RED BLOOD CELL COUNT(AUTO) 4.92 MIL/uL (4.2-6.2); RED CELL DISTRIBUTION WIDTH 24.6 % (9.0-15.0); WHITE BLOOD COUNT (AUTO) 20.4 K/uL (4.8-10.8)
[2018-12-12 21:24] LABS: CALCIUM 10.1 mg/dL (8.4-11.0); CREATININE 1.5 mg/dL (0.55-1.30)
[2018-12-12 21:31] LABS: ALBUMIN 3.5 g/dL (3.4-4.8); TOTAL BILIRUBIN 0.3 mg/dL (0.0-1.0)
[2018-12-12 21:34] LABS: POTASSIUM 2.5 mmol/L (3.5-5.1)
[2018-12-12 21:35] LABS: BAND % (MANUAL) 0 % (0-6); BASOPHILS % (MANUAL) 0 % (0-2); EOSINOPHILS % (MANUAL) 5 % (0-7); LYMPHOCYTES % (MANUAL) 14 % (20-46); MONOCYTES % (MANUAL) 3 % (0-11)
[2018-12-12] MEDS ORDERED: NACL 0.9% 1,000 ML IV ONE (21:45)
[2018-12-12] MEDS ORDERED: ONDANSETRON HCL 4 MG/2 ML VIAL IVP ONE (21:45)
[2018-12-12] MEDS ORDERED: MORPHINE 4 MG/ML INJ. SYRINGE IVP ONE ×2 (21:45→22:45)
[2018-12-12] MEDS ORDERED: POTASSIUM CHLORIDE 20 MEQ TAB.PRT.SR PO ONE (21:45)
[2018-12-12 21:47] LABS: BILIRUBIN,URINE NEGATIVE (NEGATIVE); BLOOD, URINE NEGATIVE (NEGATIVE); COLOR,URINE YELLOW (YELLOW); GLUCOSE,URINE NEGATIVE (NEGATIVE); KETONES,URINE NEGATIVE (NEGATIVE); LEUKOCYTE ESTERASE ,URINE 2+ (NEGATIVE); NITRITE, URINE NEGATIVE (NEGATIVE); PH,URINE 6.5 (5.0-8.0); PROTEIN URINE TRACE (NEGATIVE); UROBILINOGEN,URINE 0.2 (0.2-1.0)
[2018-12-12 21:54] LABS: CLARITY/URINE HAZY (CLEAR)
[2018-12-12 21:55] LABS: RBC,URINE 0-3 /HPF (0-3); WBC,URINE 20-50 /HPF (0-3)
[2018-12-12 21:56] LABS: BACTERIA,URINE FEW /HPF (None Seen); MUCUS,URINE None Seen /LPF (None Seen)
[2018-12-12] MEDS ORDERED: cefTRIAXone 1 GM IVPB PREMIX 50 ML IV ONE (22:45)
[2018-12-12] MEDS ORDERED: GABA-531 PO (23:44)
[2018-12-13] MEDS ORDERED: ACETAMINOPHEN 325 MG TABLET PO PRN
[2018-12-13] MEDS ORDERED: MORPHINE 4 MG/ML INJ. SYRINGE IVP PRN
[2018-12-13 00:48] VITALS: BP_SYST 138
[2018-12-13] MEDS ORDERED: KCL 20 mEq in D5NS 1000 mL 1,000 ML IV SCH (01:27)
[2018-12-13] MEDS ORDERED: KCL 20 mEq in NS 1000 mL 1,000 ML IV ONE (02:37)
[2018-12-13] MEDS ORDERED: KCL 20 mEq in D5NS 1000 mL 1,000 ML IV ONE ×2 (02:38)
[2018-12-13] MEDS: KCL 20 mEq in D5NS 1000 mL 1,000 ML IV SCH ×3 (02:55→22:15)
[2018-12-13 07:40] VITALS: BP_SYST 112
[2018-12-13] MEDS: CEFEPIME 1 GM in D5W 50 ML IV SCH ×2 (10:06→21:33)
[2018-12-13 11:22] VITALS: BP_SYST 115
[2018-12-13 13:12] LABS: CALCIUM 9.5 mg/dL (8.4-11.0); CREATININE 1.32 mg/dL (0.55-1.30)
[2018-12-13] MEDS ORDERED: FLUoxetine HCL 20 MG CAPSULE (PROzac) PO ONE (13:15)
[2018-12-13] MEDS ORDERED: ATENOLOL 50 MG TABLET (TENORMIN) PO ONE (13:15)
[2018-12-13 13:18] LABS: ALBUMIN 2.9 g/dL (3.4-4.8); TOTAL BILIRUBIN 0.2 mg/dL (0.0-1.0)
[2018-12-13 13:20] LABS: POTASSIUM 2.5 mmol/L (3.5-5.1)
[2018-12-13] MEDS: GABAPENTIN 300 MG CAPSULE PO SCH ×3 (13:27→21:35)
[2018-12-13] MEDS ORDERED: POTASSIUM CHLORIDE 20 MEQ TAB.PRT.SR PO ONE (13:30)
[2018-12-13] MEDS ORDERED: buPROPion HCL 75 MG TABLET PO ONE (13:30)
[2018-12-13] MEDS ORDERED: POTASSIUM CHLORIDE 40 MEQ in NS 250 ML IV ONE (13:30)
[2018-12-13] MEDS: metroNIDAZOLE 500 mg/NS 100 ML IV SCH ×2 (13:46→23:22)
[2018-12-13] MEDS: ONDANSETRON HCL 4 MG/2 ML VIAL IVP PRN ×2 (14:46→20:33)
[2018-12-13 15:27] VITALS: BP_SYST 127
[2018-12-13 20:28] VITALS: BP_SYST 128
[2018-12-13] MEDS: MORPHINE 4 MG/ML INJ. SYRINGE IVP PRN (20:37)
[2018-12-13] MEDS: buPROPion HCL 75 MG TABLET PO SCH (21:34)
[2018-12-13] MEDS: PANTOPRAZOLE SODIUM 40 MG/VIAL (PROTONIX) IVP SCH (21:34)
[2018-12-14] MEDS: MORPHINE 4 MG/ML INJ. SYRINGE IVP PRN ×5 (00:25→21:38)
[2018-12-14 00:42] VITALS: BP_SYST 121
[2018-12-14] MEDS: ONDANSETRON HCL 4 MG/2 ML VIAL IVP PRN (01:45)
[2018-12-14] MEDS: metroNIDAZOLE 500 mg/NS 100 ML IV SCH ×3 (05:30→21:37)
[2018-12-14 06:55] LABS: BASOPHILS % (AUTO) 0.3 % (0.0-2.0); EOSINOPHILS # (AUTO) 0.7 K/uL (0.0-0.4); EOSINOPHILS % (AUTO) 7.4 % (0.0-4.0); HEMATOCRIT 34.6 % (36-48); LYMPHOCYTES # (AUTO) 1.9 K/uL (1.0-5.5); LYMPHOCYTES % (AUTO) 19.1 % (20.5-51.5); MEAN CORPUSCULAR HEMOGLOBIN 27 pg (27-31); MEAN CORPUSCULAR HGB CONC 32 % (32-36); MEAN CORPUSCULAR VOLUME 83 fL (79.0-98.0); MONOCYTES # (AUTO) 0.8 K/uL (0.0-1.0); MONOCYTES % (AUTO) 7.8 % (1.7-9.3); NEUTROPHILS # (AUTO) 6.6 K/uL (1.8-7.7); NEUTROPHILS % (AUTO) 65.4 % (40.0-70.0); PLATELET COUNT (AUTO) 266 K/uL (130-430); RED BLOOD CELL COUNT(AUTO) 4.15 MIL/uL (4.2-6.2); RED CELL DISTRIBUTION WIDTH 24.7 % (9.0-15.0)
[2018-12-14 07:37] LABS: WHITE BLOOD COUNT (AUTO) 10.1 K/uL (4.8-10.8)
[2018-12-14 07:39] LABS: CALCIUM 9.4 mg/dL (8.4-11.0); CREATININE 0.98 mg/dL (0.55-1.30)
[2018-12-14 08:04] LABS: POTASSIUM 2.5 mmol/L (3.5-5.1)
[2018-12-14] MEDS ORDERED: POTASSIUM CHLORIDE 40 MEQ in NS 250 ML IV ONE (08:30)
[2018-12-14] MEDS ORDERED: POTASSIUM CHLORIDE 20 MEQ TAB.PRT.SR PO ONE (08:30)
[2018-12-14] MEDS: KCL 20 mEq in D5NS 1000 mL 1,000 ML IV SCH ×2 (10:19→21:37)
[2018-12-14] MEDS: PANTOPRAZOLE SODIUM 40 MG/VIAL (PROTONIX) IVP SCH ×2 (10:20→20:39)
[2018-12-14] MEDS: FLUoxetine HCL 20 MG CAPSULE (PROzac) PO SCH (10:20)
[2018-12-14] MEDS: ATENOLOL 50 MG TABLET (TENORMIN) PO SCH (10:21)
[2018-12-14] MEDS: buPROPion HCL 75 MG TABLET PO SCH ×2 (10:21→20:38)
[2018-12-14] MEDS: GABAPENTIN 300 MG CAPSULE PO SCH ×4 (10:21→20:39)
[2018-12-14] MEDS: CEFEPIME 1 GM in D5W 50 ML IV SCH ×2 (10:26→20:39)
[2018-12-14 11:36] VITALS: BP_SYST 131
[2018-12-14 15:26] VITALS: BP_SYST 125
[2018-12-14 20:50] VITALS: BP_SYST 109
[2018-12-14] MEDS: TEMAZEPAM 15 MG CAPSULE PO PRN (22:47)
[2018-12-15 00:36] VITALS: BP_SYST 107
[2018-12-15] MEDS: MORPHINE 4 MG/ML INJ. SYRINGE IVP PRN ×5 (04:12→22:41)
[2018-12-15] MEDS: KCL 20 mEq in D5NS 1000 mL 1,000 ML IV SCH ×3 (04:15→22:00)
[2018-12-15] MEDS: metroNIDAZOLE 500 mg/NS 100 ML IV SCH ×2 (05:32→13:12)
[2018-12-15 07:45] LABS: BASOPHILS % (AUTO) 0.4 % (0.0-2.0); EOSINOPHILS # (AUTO) 1.3 K/uL (0.0-0.4); EOSINOPHILS % (AUTO) 13.4 % (0.0-4.0); HEMATOCRIT 31.3 % (36-48); HEMOGLOBIN 9.8 g/dL (12.0-16.0); LYMPHOCYTES # (AUTO) 2.5 K/uL (1.0-5.5); LYMPHOCYTES % (AUTO) 25.5 % (20.5-51.5); MEAN CORPUSCULAR HEMOGLOBIN 27 pg (27-31); MEAN CORPUSCULAR HGB CONC 31 % (32-36); MEAN CORPUSCULAR VOLUME 85 fL (79.0-98.0); MONOCYTES # (AUTO) 0.7 K/uL (0.0-1.0); MONOCYTES % (AUTO) 7.3 % (1.7-9.3); NEUTROPHILS # (AUTO) 5.2 K/uL (1.8-7.7); NEUTROPHILS % (AUTO) 53.4 % (40.0-70.0); PLATELET COUNT (AUTO) 256 K/uL (130-430); RED BLOOD CELL COUNT(AUTO) 3.67 MIL/uL (4.2-6.2); WHITE BLOOD COUNT (AUTO) 9.7 K/uL (4.8-10.8)
[2018-12-15 07:50] LABS: CALCIUM 8.7 mg/dL (8.4-11.0); CREATININE 0.94 mg/dL (0.55-1.30); POTASSIUM 3.9 mmol/L (3.5-5.1)
[2018-12-15 07:58] LABS: RED CELL DISTRIBUTION WIDTH 24.5 % (9.0-15.0)
[2018-12-15 07:59] LABS: PHOSPHORUS 2.7 mg/dL (2.7-4.5)
[2018-12-15 08:00] VITALS: BP_SYST 107
[2018-12-15] MEDS: ONDANSETRON HCL 4 MG/2 ML VIAL IVP PRN ×2 (08:30→14:37)
[2018-12-15] MEDS: CEFEPIME 1 GM in D5W 50 ML IV SCH ×2 (08:40→22:57)
[2018-12-15] MEDS: PANTOPRAZOLE SODIUM 40 MG/VIAL (PROTONIX) IVP SCH ×2 (08:40→22:39)
[2018-12-15] MEDS: ATENOLOL 50 MG TABLET (TENORMIN) PO SCH (08:41)
[2018-12-15] MEDS: GABAPENTIN 300 MG CAPSULE PO SCH ×4 (08:41→22:39)
[2018-12-15] MEDS: FLUoxetine HCL 20 MG CAPSULE (PROzac) PO SCH (08:41)
[2018-12-15] MEDS: buPROPion HCL 75 MG TABLET PO SCH ×2 (08:41→22:56)
[2018-12-15] MEDS ORDERED: SIMETHICONE 40 MG/0.6 ML ML ONE (11:27)
[2018-12-15] MEDS ORDERED: fentaNYL CITRATE/PF 100 MCG/2 ML AMP ONE (11:27)
[2018-12-15 11:31] VITALS: BP_SYST 104
[2018-12-15] MEDS ORDERED: BENZOCAINE 20% 0.5mL UD SPRAY MM ONE (12:02)
[2018-12-15] MEDS: MIDAZOLAM HCL 5 MG/5 ML VIAL ONE ×3 (12:02→12:10)
[2018-12-15 15:35] VITALS: BP_SYST 129
[2018-12-15 20:00] VITALS: BP_SYST 117
[2018-12-15 22:40] VITALS: BP_SYST 116
[2018-12-16] MEDS: metroNIDAZOLE 500 mg/NS 100 ML IV SCH ×4 (00:41→21:37)
[2018-12-16] MEDS: TEMAZEPAM 15 MG CAPSULE PO PRN ×2 (00:41→21:34)
[2018-12-16] MEDS: MORPHINE 4 MG/ML INJ. SYRINGE IVP PRN ×5 (03:17→18:58)
[2018-12-16] MEDS: KCL 20 mEq in D5NS 1000 mL 1,000 ML IV SCH ×3 (06:42→21:38)
[2018-12-16 08:00] VITALS: BP_SYST 101
[2018-12-16 09:27] VITALS: BP_SYST 142
[2018-12-16] MEDS: PANTOPRAZOLE SODIUM 40 MG/VIAL (PROTONIX) IVP SCH ×2 (09:27→21:34)
[2018-12-16] MEDS: CEFEPIME 1 GM in D5W 50 ML IV SCH ×2 (09:27→21:36)
[2018-12-16] MEDS: GABAPENTIN 300 MG CAPSULE PO SCH ×4 (09:27→21:35)
[2018-12-16] MEDS: FLUoxetine HCL 20 MG CAPSULE (PROzac) PO SCH (09:28)
[2018-12-16] MEDS: ATENOLOL 50 MG TABLET (TENORMIN) PO SCH (09:28)
[2018-12-16] MEDS: buPROPion HCL 75 MG TABLET PO SCH ×2 (09:34→21:35)
[2018-12-16 11:43] VITALS: BP_SYST 144
[2018-12-16 15:38] VITALS: BP_SYST 125
[2018-12-16 20:00] VITALS: BP_SYST 128
[2018-12-17 00:19] VITALS: BP_SYST 116
[2018-12-17] MEDS: MORPHINE 4 MG/ML INJ. SYRINGE IVP PRN ×5 (00:44→20:04)
[2018-12-17 04:00] VITALS: BP_SYST 121
[2018-12-17] MEDS: metroNIDAZOLE 500 mg/NS 100 ML IV SCH ×3 (05:46→22:11)
[2018-12-17 07:45] VITALS: BP_SYST 126
[2018-12-17] MEDS: ATENOLOL 50 MG TABLET (TENORMIN) PO SCH (10:03)
[2018-12-17] MEDS: GABAPENTIN 300 MG CAPSULE PO SCH ×4 (10:03→21:53)
[2018-12-17] MEDS: FLUoxetine HCL 20 MG CAPSULE (PROzac) PO SCH (10:04)
[2018-12-17] MEDS: PANTOPRAZOLE SODIUM 40 MG/VIAL (PROTONIX) IVP SCH ×2 (10:04→21:54)
[2018-12-17] MEDS: buPROPion HCL 75 MG TABLET PO SCH ×2 (10:04→21:59)
[2018-12-17] MEDS: CEFEPIME 1 GM in D5W 50 ML IV SCH ×2 (10:14→22:11)
[2018-12-17] MEDS: KCL 20 mEq in D5NS 1000 mL 1,000 ML IV SCH ×2 (10:15→22:34)
[2018-12-17 12:00] VITALS: BP_SYST 127
[2018-12-17 16:00] VITALS: BP_SYST 121
[2018-12-17 20:30] VITALS: BP_SYST 155
[2018-12-17] MEDS: TEMAZEPAM 15 MG CAPSULE PO PRN (21:54)
[2018-12-18] VITALS (7 sets, daily range): BP systolic 120–130
[2018-12-18] MEDS: MORPHINE 4 MG/ML INJ. SYRINGE IVP PRN ×5 (00:15→22:29)
[2018-12-18] MEDS: metroNIDAZOLE 500 mg/NS 100 ML IV SCH ×3 (05:29→21:06)
[2018-12-18] MEDS: CEFEPIME 1 GM in D5W 50 ML IV SCH ×2 (08:09→21:06)
[2018-12-18] MEDS: buPROPion HCL 75 MG TABLET PO SCH ×3 (08:11→21:05)
[2018-12-18] MEDS: PANTOPRAZOLE SODIUM 40 MG/VIAL (PROTONIX) IVP SCH ×2 (08:11→21:04)
[2018-12-18] MEDS: GABAPENTIN 300 MG CAPSULE PO SCH ×5 (08:12→21:05)
[2018-12-18] MEDS: ATENOLOL 50 MG TABLET (TENORMIN) PO SCH (08:12)
[2018-12-18] MEDS: FLUoxetine HCL 20 MG CAPSULE (PROzac) PO SCH ×2 (08:12→09:00)
[2018-12-18 09:58] LABS: INR 1.1 (0.8-1.2); PROTHROMBIN TIME 10.8 SECS (9.5-12.5)
[2018-12-18] MEDS ORDERED: ONDANSETRON HCL 4 MG/2 ML VIAL IVP PRN (12:15)
[2018-12-18] MEDS ORDERED: ACETAMINOPHEN/CODEINE 300 MG-30 MG TABLET PO PRN (12:15)
[2018-12-18] MEDS ORDERED: MORPHINE 4 MG/ML INJ. SYRINGE IVP PRN ×4 (12:15→13:15)
[2018-12-18] MEDS ORDERED: IOHEXOL 100 ML IV ONE (12:43)
[2018-12-18] MEDS ORDERED: LR 1,000 ML IV SCH (13:08)
[2018-12-18] MEDS ORDERED: METOCLOPRAMIDE HCL 10 MG/2 ML VIAL IVP PRN (13:15)
[2018-12-18] MEDS ORDERED: MORPHINE 4 MG/ML INJ. SYRINGE ONE (14:03)
[2018-12-18] MEDS: KCL 20 mEq in D5NS 1000 mL 1,000 ML IV SCH (19:00)
[2018-12-19] VITALS: BP_SYST 124
[2018-12-19] MEDS: TEMAZEPAM 15 MG CAPSULE PO PRN (00:52)
[2018-12-19 01:35] VITALS: BP_SYST 105
[2018-12-19] MEDS: MORPHINE 4 MG/ML INJ. SYRINGE IVP PRN ×4 (02:59→15:28)
[2018-12-19] MEDS: KCL 20 mEq in D5NS 1000 mL 1,000 ML IV SCH ×2 (05:00→09:35)
[2018-12-19] MEDS: metroNIDAZOLE 500 mg/NS 100 ML IV SCH ×2 (06:40→13:32)
[2018-12-19 07:04] LABS: BASOPHILS % (AUTO) 0.3 % (0.0-2.0); EOSINOPHILS # (AUTO) 0.5 K/uL (0.0-0.4); EOSINOPHILS % (AUTO) 5.3 % (0.0-4.0); HEMATOCRIT 29.7 % (36-48); HEMOGLOBIN 9.3 g/dL (12.0-16.0); LYMPHOCYTES # (AUTO) 1.7 K/uL (1.0-5.5); LYMPHOCYTES % (AUTO) 17.4 % (20.5-51.5); MEAN CORPUSCULAR HEMOGLOBIN 27 pg (27-31); MEAN CORPUSCULAR HGB CONC 31 % (32-36); MEAN CORPUSCULAR VOLUME 85 fL (79.0-98.0); MONOCYTES # (AUTO) 0.9 K/uL (0.0-1.0); MONOCYTES % (AUTO) 9.1 % (1.7-9.3); NEUTROPHILS # (AUTO) 6.8 K/uL (1.8-7.7); NEUTROPHILS % (AUTO) 67.9 % (40.0-70.0); PLATELET COUNT (AUTO) 287 K/uL (130-430); RED CELL DISTRIBUTION WIDTH 25.1 % (9.0-15.0)
[2018-12-19 07:29] LABS: CALCIUM 9.2 mg/dL (8.4-11.0); CREATININE 0.89 mg/dL (0.55-1.30); POTASSIUM 4.8 mmol/L (3.5-5.1)
[2018-12-19 08:00] VITALS: BP_SYST 116
[2018-12-19] MEDS: CEFEPIME 1 GM in D5W 50 ML IV SCH (08:25)
[2018-12-19] MEDS: GABAPENTIN 300 MG CAPSULE PO SCH ×3 (09:36→17:11)
[2018-12-19] MEDS: FLUoxetine HCL 20 MG CAPSULE (PROzac) PO SCH (09:36)
[2018-12-19] MEDS: ATENOLOL 50 MG TABLET (TENORMIN) PO SCH (09:37)
[2018-12-19] MEDS: buPROPion HCL 75 MG TABLET PO SCH (09:37)
[2018-12-19] MEDS: PANTOPRAZOLE SODIUM 40 MG/VIAL (PROTONIX) IVP SCH (09:39)
[2018-12-19 11:19] VITALS: BP_SYST 140
[2018-12-19 15:39] VITALS: BP_SYST 118
[2018-12-19 16:46] VITALS: BP_SYST 118
== END 2018-12-19 17:50 | disposition home or self-care (01) | DRG 336 ==
LOC: SED 19:39 → SMU 23:53
PROVIDERS: ADMIT Family Medicine; ATTEND Family Medicine
PROC: 0DB78ZX Excision of Stomach, Pylorus, Via Natural or Artificial Opening Endoscopic, Diagnostic (ICD-10-PCS; principal; 2018-12-15 12:00)
PROC: 0FT44ZZ Resection of Gallbladder, Percutaneous Endoscopic Approach (ICD-10-PCS; 2018-12-18)
PROC: 0FN44ZZ Release Gallbladder, Percutaneous Endoscopic Approach (ICD-10-PCS; 2018-12-18)
PROC: BF131ZZ Fluoroscopy of Gallbladder and Bile Ducts using Low Osmolar Contrast (ICD-10-PCS; 2018-12-18)
DX: K31.1 Adult hypertrophic pyloric stenosis (principal); K80.10 Calculus of gallbladder with chronic cholecystitis without obstruction; N39.0 Urinary tract infection, site not specified; K86.1 Other chronic pancreatitis; N17.9 Acute kidney failure, unspecified; K25.9 Gastric ulcer, unspecified as acute or chronic, without hemorrhage or perforation; E66.9 Obesity, unspecified; K29.50 Unspecified chronic gastritis without bleeding; K66.0 Peritoneal adhesions (postprocedural) (postinfection); E87.6 Hypokalemia; F32.9 Major depressive disorder, single episode, unspecified; I10 Essential (primary) hypertension; K21.9 Gastro-esophageal reflux disease without esophagitis; K59.00 Constipation, unspecified; Z81.8 Family history of other mental and behavioral disorders; Z90.49 Acquired absence of other specified parts of digestive tract; Z90.710 Acquired absence of both cervix and uterus; Z68.31 Body mass index [BMI] 31.0-31.9, adult; Z79.899 Other long term (current) drug therapy
CPT/HCPCS: 36415; 43239; 71045; 74300; 78226; 80048; 80053; 81000-TC; 83605; 83690-TC; 83735-TC; 84100-TC; 84132-TC; 85007; 85025; 85027; 85610-TC; 85730-TC; 86886; 86900; 86901; 87040-TC; 87081; 87086; 88304; 88305; 88312; 88313; 93005; 96365; 96375; 96376; 99285; A9537; C1727; C9113; J0692; J0696; J2250; J2270; J2274; J2405; J2704; J2710; J3010; J3480; J3490; J7030; J7050; J7060; J7120; Q9967

== ENCOUNTER 2018-12-23 14:00 | Emergency (ER) | payer SELFPAY ==
[~2018-12-23] VITALS: Ht 172.7 cm; Wt 95.3 kg
[~2018-12-23 14:00] MED LIST changes: -ATEN-41 PO; -BUPIVACAINE /EPINEPHRINE/PF 0.25% 30 ML VIAL INJ ONE; -GABA-529 PO; -GLYCOPYRROLATE 0.2 MG/ML VIAL IJ ONE; -LR 1,000 ML IV.SOLN IV ONE; -MORPHINE SULFATE 10MG/10ML PF AMP EP ONE; -NEOSTIGMINE METHYLSULFATE 1 MG/ML, 10 ML VIAL IVP ONE; -NS 1000 ML IV.SOLN IV ONE; -NS IRRIG SOLN 1000 ML IR ONE; -ONDANSETRON HCL 4 MG/2 ML VIAL IVP ONE; -PROPOFOL 200MG/ 20ML VIAL (DIPRIVAN) IV ONE; -ROCURONIUM BROMIDE 10 MG/ML (ZEMURON) IV ONE; -SEVOFLURANE 15 MIN GAS INH ONE; -SUCR1TAB78 PO; -WELSR150 PO; -fentaNYL CITRATE/PF 100 MCG/2 ML AMP IVP ONE
[2018-12-23 14:04] VITALS: BP_SYST 133
--- NOTE | 2018-12-23 14:10 | NUR ---
Patient to ER bed 5 to gown for evaluation. Side rails up. Report given to Vi DOTSON.
--- NOTE | 2018-12-23 14:14 | NUR ---
Pt is AAO ambulated to ED with complaints of 9/10 abdominal pain. Pt has been experiencing N/V x3 days. Pt stated that she had my gallbladder removed 5 days ago, and the N/V started 2 days after.
--- NOTE | 2018-12-23 14:16 | NUR ---
ER at bedside examining patient.
[2018-12-23] MEDS ORDERED: MORPHINE 4 MG/ML INJ. SYRINGE IVP ONE (14:30)
[2018-12-23] MEDS ORDERED: NACL 0.9% 1,000 ML IV ONE (14:30)
--- NOTE | 2018-12-23 15:20 | NUR ---
Patient resting quietly. No acute distress noted. Vital signs within normal range.
[2018-12-23 15:21] LABS: CALCIUM 9.3 mg/dL (8.4-11.0); CREATININE 0.77 mg/dL (0.55-1.30); POTASSIUM 3.7 mmol/L (3.5-5.1)
[2018-12-23 15:22] LABS: BASOPHILS # (AUTO) 0.1 K/uL (0.0-0.2); BASOPHILS % (AUTO) 0.6 % (0.0-2.0); EOSINOPHILS # (AUTO) 0.3 K/uL (0.0-0.4); EOSINOPHILS % (AUTO) 2.4 % (0.0-4.0); HEMATOCRIT 35.6 % (36-48); HEMOGLOBIN 11.3 g/dL (12.0-16.0); LYMPHOCYTES # (AUTO) 1.7 K/uL (1.0-5.5); LYMPHOCYTES % (AUTO) 15.1 % (20.5-51.5); MEAN CORPUSCULAR HEMOGLOBIN 27 pg (27-31); MEAN CORPUSCULAR HGB CONC 32 % (32-36); MEAN CORPUSCULAR VOLUME 85 fL (79.0-98.0); MONOCYTES # (AUTO) 0.9 K/uL (0.0-1.0); NEUTROPHILS # (AUTO) 8.1 K/uL (1.8-7.7); NEUTROPHILS % (AUTO) 73.9 % (40.0-70.0); PLATELET COUNT (AUTO) 399 K/uL (130-430); RED BLOOD CELL COUNT(AUTO) 4.21 MIL/uL (4.2-6.2); RED CELL DISTRIBUTION WIDTH 23.6 % (9.0-15.0); WHITE BLOOD COUNT (AUTO) 10.9 K/uL (4.8-10.8)
[2018-12-23 15:26] LABS: ALBUMIN 2.9 g/dL (3.4-4.8); TOTAL BILIRUBIN 0.4 mg/dL (0.0-1.0)
[2018-12-23] MEDS ORDERED: ONDANSETRON 4 MG ODT TAB PO ONE (15:30)
--- NOTE | 2018-12-23 15:30 | NUR ---
Pt stated that she is still unable to provide urine due to lack of urge. Pt stated she will try in an hour and "it will probably happen then"
[2018-12-23] MEDS ORDERED: METOCLOPRAMIDE HCL 10 MG/2 ML VIAL IVP ONE (16:45)
--- NOTE | 2018-12-23 17:48 | NUR ---
Radiology Pt transported off the unit to CT
--- NOTE | 2018-12-23 17:57 | NUR ---
Radiology Pt returned to ED room 5 from radiology
[2018-12-23 18:46] LABS: BILIRUBIN,URINE NEGATIVE (NEGATIVE); BLOOD, URINE NEGATIVE (NEGATIVE); CLARITY/URINE SL HAZY (CLEAR); COLOR,URINE YELLOW (YELLOW); GLUCOSE,URINE NEGATIVE (NEGATIVE); KETONES,URINE TRACE (NEGATIVE); LEUKOCYTE ESTERASE ,URINE TRACE (NEGATIVE); NITRITE, URINE NEGATIVE (NEGATIVE); PROTEIN URINE TRACE (NEGATIVE); UROBILINOGEN,URINE 0.2 (0.2-1.0)
[2018-12-23 19:03] LABS: BACTERIA,URINE FEW /HPF (None Seen); MUCUS,URINE 2+ /LPF (None Seen); RBC,URINE NONE SEEN /HPF (0-3)
[2018-12-23] MEDS ORDERED: cefTRIAXone 1 GM in D5W 50 ML IV ONE (19:15)
[2018-12-23] MEDS ORDERED: cefTRIAXone 1 GM VIAL ONE (20:09)
[2018-12-23 20:40] VITALS: BP_SYST 133
--- NOTE | 2018-12-23 20:40 | NUR ---
Patient given written and verbal discharge instructions and verbalizes understanding. ER MD Dr. Stark discussed with patient the results and treatment provided. Patient in stable condition. ID arm band removed. IV catheter removed intact and dressing applied, no active bleeding. Rx of colace, reglan and cipro given. Patient educated on pain management and to follow up with PMD. Pain Scale 0/10. Opportunity for questions provided and answered. Medication side effect fact sheet provided.
--- NOTE | 2018-12-24 14:40 | NUR ---
RECEIVED DISCREPTANCY FOR RADIOLOGY, DISCUSSED CASE WITH DR Jono DOWNING, CALLED PT AT GIVEN NUMBER AND LEFT MESSAGE TO RETURN CALL. AWAITING CALL BACK.
== END 2018-12-23 20:40 | disposition home or self-care (01) ==
LOC: SED 14:00
DX: G89.18 Other acute postprocedural pain (principal); N39.0 Urinary tract infection, site not specified; F32.9 Major depressive disorder, single episode, unspecified; I10 Essential (primary) hypertension; Z90.49 Acquired absence of other specified parts of digestive tract; Z90.710 Acquired absence of both cervix and uterus; Z79.899 Other long term (current) drug therapy; Z91.048 Other nonmedicinal substance allergy status
CPT/HCPCS: 36415; 80053; 81000-TC; 83605; 83690-TC; 85025; 87040-TC; 87086; 96365; 96375; 96376; 99284; J0696; J2270; J2765; J7030; Q0162

== ENCOUNTER 2018-12-25 11:09 | Emergency (ER) | payer SELFPAY ==
[~2018-12-25] VITALS: Ht 172.7 cm; Wt 95.3 kg
[2018-12-25 11:15] VITALS: BP_SYST 139
[2018-12-25] MEDS ORDERED: fentaNYL CITRATE/PF 100 MCG/2 ML AMP IVP ONE (12:15)
[2018-12-25] MEDS ORDERED: KETAMINE 30 MG/3 ML SYRINGE 30 MG in NS 100 ML IV ONE (12:15)
[2018-12-25 12:50] LABS: BILIRUBIN,URINE 1+ (NEGATIVE); CLARITY/URINE HAZY (CLEAR); COLOR,URINE YELLOW (YELLOW); GLUCOSE,URINE NEGATIVE (NEGATIVE); KETONES,URINE 3+ (NEGATIVE); LEUKOCYTE ESTERASE ,URINE 2+ (NEGATIVE); NITRITE, URINE NEGATIVE (NEGATIVE); PH,URINE >=9.0 (5.0-8.0); PROTEIN URINE 1+ (NEGATIVE); UROBILINOGEN,URINE 0.2 (0.2-1.0)
[2018-12-25 12:59] LABS: BASOPHILS # (AUTO) 0.1 K/uL (0.0-0.2); BASOPHILS % (AUTO) 1.1 % (0.0-2.0); EOSINOPHILS # (AUTO) 0.1 K/uL (0.0-0.4); EOSINOPHILS % (AUTO) 0.6 % (0.0-4.0); HEMATOCRIT 37.9 % (36-48); HEMOGLOBIN 12.3 g/dL (12.0-16.0); LYMPHOCYTES # (AUTO) 1.5 K/uL (1.0-5.5); LYMPHOCYTES % (AUTO) 17.7 % (20.5-51.5); MEAN CORPUSCULAR HEMOGLOBIN 27 pg (27-31); MEAN CORPUSCULAR HGB CONC 32 % (32-36); MEAN CORPUSCULAR VOLUME 83 fL (79.0-98.0); MONOCYTES # (AUTO) 0.7 K/uL (0.0-1.0); MONOCYTES % (AUTO) 8.5 % (1.7-9.3); NEUTROPHILS # (AUTO) 6.1 K/uL (1.8-7.7); NEUTROPHILS % (AUTO) 72.1 % (40.0-70.0); RED BLOOD CELL COUNT(AUTO) 4.59 MIL/uL (4.2-6.2); RED CELL DISTRIBUTION WIDTH 23.3 % (9.0-15.0); WHITE BLOOD COUNT (AUTO) 8.4 K/uL (4.8-10.8)
[2018-12-25 13:01] LABS: BLOOD, URINE TRACE (NEGATIVE)
[2018-12-25 13:08] LABS: BACTERIA,URINE FEW /HPF (None Seen); RBC,URINE 0-3 /HPF (0-3)
[2018-12-25 13:09] LABS: MUCUS,URINE 1+ /LPF (None Seen); URINE AMORPHOUS PHOSPHATES 1+ /HPF (None Seen)
[2018-12-25 13:15] LABS: CALCIUM 10.6 mg/dL (8.4-11.0); CREATININE 0.94 mg/dL (0.55-1.30)
[2018-12-25] MEDS ORDERED: METOCLOPRAMIDE HCL 10 MG/2 ML VIAL IVP ONE (13:15)
[2018-12-25 13:18] LABS: PLATELET COUNT (AUTO) 451 K/uL (130-430)
[2018-12-25 13:22] LABS: TOTAL BILIRUBIN 0.6 mg/dL (0.0-1.0)
[2018-12-25 13:32] LABS: POTASSIUM 2.9 mmol/L (3.5-5.1)
[2018-12-25] MEDS ORDERED: POTASSIUM CHLORIDE 20 MEQ TAB.PRT.SR PO ONE (14:00)
[2018-12-25] MEDS ORDERED: POTASSIUM CHLORIDE 10 MEQ in NACL 0.9% 1,000 ML IV SCH (14:00)
[2018-12-25 15:23] VITALS: BP_SYST 138
== END 2018-12-25 15:21 | disposition home or self-care (01) ==
LOC: SED 11:09
DX: K31.84 Gastroparesis (principal); E87.6 Hypokalemia; F32.9 Major depressive disorder, single episode, unspecified; Z90.49 Acquired absence of other specified parts of digestive tract; Z90.89 Acquired absence of other organs; Z91.048 Other nonmedicinal substance allergy status; Z79.899 Other long term (current) drug therapy
CPT/HCPCS: 36415; 80053; 81000; 83690; 85025; 87086; 96374; 96375; 99283; J2765; J3010; J3480; J7030

== ENCOUNTER 2019-01-19 18:33 | Emergency (ER) | payer SELFPAY ==
[~2019-01-19] VITALS: Ht 172.7 cm; Wt 91.2 kg
[2019-01-19 19:19] VITALS: BP_SYST 111
[2019-01-19] MEDS ORDERED: NACL 0.9% 1,000 ML IV ONE (20:15)
[2019-01-19] MEDS ORDERED: MORPHINE 4 MG/ML INJ. SYRINGE IVP ONE ×2 (20:15→23:15)
[2019-01-19] MEDS ORDERED: ONDANSETRON HCL 4 MG/2 ML VIAL IVP ONE (20:15)
[2019-01-19 20:27] LABS: BASOPHILS % (AUTO) 0.3 % (0.0-2.0); HEMATOCRIT 39.1 % (36-48); HEMOGLOBIN 12.3 g/dL (12.0-16.0); LYMPHOCYTES # (AUTO) 1.9 K/uL (1.0-5.5); LYMPHOCYTES % (AUTO) 18.2 % (20.5-51.5); MEAN CORPUSCULAR HEMOGLOBIN 27 pg (27-31); MEAN CORPUSCULAR HGB CONC 31 % (32-36); MEAN CORPUSCULAR VOLUME 85 fL (79.0-98.0); MONOCYTES % (AUTO) 9.3 % (1.7-9.3); NEUTROPHILS # (AUTO) 7.7 K/uL (1.8-7.7); NEUTROPHILS % (AUTO) 72.2 % (40.0-70.0); PLATELET COUNT (AUTO) 462 K/uL (130-430); RED BLOOD CELL COUNT(AUTO) 4.59 MIL/uL (4.2-6.2); RED CELL DISTRIBUTION WIDTH 20.8 % (9.0-15.0); WHITE BLOOD COUNT (AUTO) 10.6 K/uL (4.8-10.8)
[2019-01-19 20:39] LABS: CALCIUM 10.5 mg/dL (8.4-11.0); CREATININE 1.11 mg/dL (0.55-1.30)
[2019-01-19 20:43] LABS: ALBUMIN 2.8 g/dL (3.4-4.8); TOTAL BILIRUBIN 0.5 mg/dL (0.0-1.0)
[2019-01-19] MEDS ORDERED: POTASSIUM CHLORIDE 20 MEQ TAB.PRT.SR PO ONE (20:45)
[2019-01-19 20:47] LABS: POTASSIUM 2.4 mmol/L (3.5-5.1)
[2019-01-19 21:12] LABS: BILIRUBIN,URINE NEGATIVE (NEGATIVE); BLOOD, URINE NEGATIVE (NEGATIVE); CLARITY/URINE CLEAR (CLEAR); COLOR,URINE YELLOW (YELLOW); GLUCOSE,URINE NEGATIVE (NEGATIVE); KETONES,URINE NEGATIVE (NEGATIVE); LEUKOCYTE ESTERASE ,URINE NEGATIVE (NEGATIVE); NITRITE, URINE NEGATIVE (NEGATIVE); PROTEIN URINE NEGATIVE (NEGATIVE); UROBILINOGEN,URINE 0.2 (0.2-1.0)
[2019-01-19] MEDS ORDERED: MORPHINE 4 MG/ML INJ. SYRINGE ONE (23:29)
[2019-01-19 23:56] VITALS: BP_SYST 111
== END 2019-01-19 23:56 | disposition home or self-care (01) ==
LOC: SED 18:33
DX: E11.43 Type 2 diabetes mellitus with diabetic autonomic (poly)neuropathy (principal); K31.84 Gastroparesis; K57.90 Diverticulosis of intestine, part unspecified, without perforation or abscess without bleeding; E87.6 Hypokalemia; K76.0 Fatty (change of) liver, not elsewhere classified; R74.0 Nonspecific elevation of levels of transaminase and lactic acid dehydrogenase [LDH]; I10 Essential (primary) hypertension; F32.9 Major depressive disorder, single episode, unspecified; Z90.49 Acquired absence of other specified parts of digestive tract; Z90.710 Acquired absence of both cervix and uterus; Z79.899 Other long term (current) drug therapy; Z91.048 Other nonmedicinal substance allergy status
CPT/HCPCS: 36415; 74176; 76700; 81003; 80053; 83690; 85025; 93005; 96361; 96374; 96375; 96376; 99284; J2270; J2405; J7030